=== PATIENT | female | born 1935 | race Caucasian/White ===

== ENCOUNTER 2018-06-13 21:51 | Emergency (ER) | payer MEDICARE, OTHER ==
[2018-06-14] MEDS: HYDROCODONE/APAP (5/325) TAB PO (00:51)
[2018-06-14] MEDS: AMOXICILLIN 500 MG CAP PO (00:54)
== END 2018-06-14 01:09 | disposition home or self-care (01) ==
LOC: FTE 21:51
DX: K08.89 Other specified disorders of teeth and supporting structures (principal); I11.0 Hypertensive heart disease with heart failure; I50.9 Heart failure, unspecified; Z79.01 Long term (current) use of anticoagulants; Z79.82 Long term (current) use of aspirin; Z98.61 Coronary angioplasty status
CPT/HCPCS: 99284